=== PATIENT | male | born 1985 | race Caucasian/White ===

== ENCOUNTER 2017-09-30 00:35 | Inpatient (IN) | payer OTHER ==
[~2017-09-30] VITALS: Ht 193 cm; Wt 89.1 kg
[2017-09-30 01:05] LABS: PLATELET COUNT 238 x10^3mcL (130-400); RED CELL DISTRIBUTION WIDTH 13.2 % (11.5-14.5)
[2017-09-30 01:10] LABS: BASOPHIL % 3.1 % (0-2)
[2017-09-30 01:21] LABS: CALCIUM 9.1 mg/dL (8.5-10.1); CARBON DIOXIDE 28.1 mmol/L (21-32); CHLORIDE SERUM 102 mmol/L (98-107); CREATININE SERUM 1.1 mg/dL (0.7-1.3); GFR1 > 60 mL/min; GLUCOSE SERUM 132 mg/dL (74-106); POTASSIUM SERUM 3.8 mmol/L (3.5-5.1); SODIUM SERUM 141 mmol/L (136-145)
[2017-09-30 01:25] LABS: ALBUMIN 4.5 g/dL (3.4-5.0); ALKALINE PHOSPHATASE 67 U/L (46-116); ALT/SGPT 24 U/L (16-63); AMYLASE 62 U/L (25-115); AST/SGOT 14 U/L (15-37); BILIRUBIN TOTAL 0.48 mg/dL (0.20-1.00); LIPASE 178 IU/L (73-393)
[2017-09-30 04:04] VITALS: BP 116/59
[2017-09-30 04:24] LABS: microscopic required? NO
[2017-09-30 04:27] LABS: MAGNESIUM 2.1 mg/dL (1.8-2.4); PHOSPHOROUS 3.2 mg/dL (2.5-4.9)
[2017-09-30 04:28] LABS: CHOLESTEROL/HDL RATIO 2.1
[2017-09-30 04:30] LABS: FREE T4 1.07 ng/dL (0.76-1.46); FREE THYROXINE INDEX 3.2 ug/dL (1.4-4.5); T3 TOTAL 1.05 ng/mL; T4(THYROXINE) 8.7 ug/dL (4.7-13.3)
[2017-09-30 04:40] LABS: UA SPECIFIC GRAVITY >=1.030 (1.005-1.035); urine erythrocyte NEGATIVE (NEGATIVE)
[2017-09-30 04:49] LABS: AMPHETAMINE QUAL UR NONE DETECTED (NEG <=1000)
[2017-09-30 07:32] LABS: BASOPHIL % 0.3 % (0-2); PLATELET COUNT 213 x10^3mcL (130-400)
[2017-09-30 07:37] LABS: CALCIUM 8.2 mg/dL (8.5-10.1); CARBON DIOXIDE 27.6 mmol/L (21-32); CHLORIDE SERUM 107 mmol/L (98-107); GFR1 > 60 mL/min; GLUCOSE SERUM 121 mg/dL (74-106); POTASSIUM SERUM 4.1 mmol/L (3.5-5.1); SODIUM SERUM 142 mmol/L (136-145)
[2017-09-30 08:57] VITALS: BP 104/54
[2017-09-30 18:21] VITALS: BP 109/65
[2017-09-30 21:32] VITALS: BP 106/63
[2017-10-01 06:04] VITALS: BP 121/73
[2017-10-01 07:22] LABS: BASOPHIL % 0.3 % (0-2); PLATELET COUNT 200 x10^3mcL (130-400); RED CELL DISTRIBUTION WIDTH 13.2 % (11.5-14.5)
[2017-10-01 07:42] LABS: CALCIUM 8.5 mg/dL (8.5-10.1); CARBON DIOXIDE 27.2 mmol/L (21-32); CHLORIDE SERUM 105 mmol/L (98-107); GFR1 > 60 mL/min; GLUCOSE SERUM 113 mg/dL (74-106); MAGNESIUM 1.8 mg/dL (1.8-2.4); PHOSPHOROUS 2.9 mg/dL (2.5-4.9); POTASSIUM SERUM 4.3 mmol/L (3.5-5.1); SODIUM SERUM 140 mmol/L (136-145)
[2017-10-01 09:35] VITALS: BP 112/67
[2017-10-01 12:44] VITALS: BP 119/72; Ht 193 cm; Wt 89.1 kg
[2017-10-01 17:35] VITALS: BP 120/65
[2017-10-01 21:41] VITALS: BP 130/72
[2017-10-02 05:22] VITALS: BP 108/60
[2017-10-02 07:25] LABS: BASOPHIL % 0.3 % (0-2); PLATELET COUNT 187 x10^3mcL (130-400); RED CELL DISTRIBUTION WIDTH 13.4 % (11.5-14.5)
[2017-10-02 07:31] LABS: CALCIUM 8.9 mg/dL (8.5-10.1); CARBON DIOXIDE 26.4 mmol/L (21-32); CHLORIDE SERUM 105 mmol/L (98-107); GFR1 > 60 mL/min; GLUCOSE SERUM 110 mg/dL (74-106); MAGNESIUM 1.8 mg/dL (1.8-2.4); PHOSPHOROUS 3.9 mg/dL (2.5-4.9); POTASSIUM SERUM 3.9 mmol/L (3.5-5.1); SODIUM SERUM 141 mmol/L (136-145)
[2017-10-02 09:08] VITALS: BP 120/61
[2017-10-02 22:12] VITALS: BP 110/55
[2017-10-03 06:08] VITALS: BP 113/62
[2017-10-03 09:18] VITALS: BP 116/62
[2017-10-03] MEDS ORDERED: NOR10T PO (11:43)
[2017-10-03] MEDS ORDERED: COLACE100 MG PO (11:44)
[2017-10-03] MEDS ORDERED: ZITHROMAX1 GM/Packe PO (11:44)
[2017-10-03] MEDS ORDERED: BD LACTINEX1.4 MG PO (11:45)
[2017-10-03] MEDS ORDERED: MOT800 PO (11:48)
[2017-10-03 13:08] VITALS: BP 116/62
== END 2017-10-03 15:04 | disposition home or self-care (01) | DRG 343 ==
LOC: ED 00:35 → MU 02:51 → DU 02:51 → MU 03:26 → DU 03:33 → MU 09:13
PROVIDERS: Emergency Medicine; Family Medicine; Surgery
PROC: 0DTJ4ZZ Resection of Appendix, Percutaneous Endoscopic Approach (ICD-10-PCS; principal; 2017-10-01 15:30)
DX: K35.80 Unspecified acute appendicitis (principal); K59.00 Constipation, unspecified; R73.03 Prediabetes; J06.9 Acute upper respiratory infection, unspecified; Z68.25 Body mass index [BMI] 25.0-25.9, adult
CPT/HCPCS: 83880; 84439; 94150; J0330; J0690; J1170; J1885; J1956; J2405; J2704; J3010; J3490; J7030; J7120; Q0092; Q9967

== ENCOUNTER 2017-10-05 22:48 | Emergency (ER) | payer OTHER ==
[~2017-10-05 22:48] MED LIST: BD LACTINEX1.4 MG PO; COLACE100 MG PO; MOT800 PO; NOR10T PO; ZITHROMAX1 GM/Packe PO
[2017-10-05 23:54] LABS: BASOPHIL % 0.3 % (0-2); PLATELET COUNT 222 x10^3mcL (130-400); RED CELL DISTRIBUTION WIDTH 13.2 % (11.5-14.5)
[2017-10-06 00:03] LABS: CALCIUM 8.8 mg/dL (8.5-10.1); CARBON DIOXIDE 28.9 mmol/L (21-32); CHLORIDE SERUM 104 mmol/L (98-107); CREATININE SERUM 1.1 mg/dL (0.7-1.3); GFR1 > 60 mL/min; GLUCOSE SERUM 105 mg/dL (74-106); POTASSIUM SERUM 4.3 mmol/L (3.5-5.1); SODIUM SERUM 142 mmol/L (136-145)
[2017-10-06 00:05] LABS: ALBUMIN 3.8 g/dL (3.4-5.0); ALKALINE PHOSPHATASE 60 U/L (46-116); ALT/SGPT 36 U/L (16-63); AST/SGOT 22 U/L (15-37); BILIRUBIN TOTAL 0.2 mg/dL (0.20-1.00); TOTAL PROTEIN, SERUM 7.4 g/dL (6.4-8.2)
[2017-10-06 02:14] VITALS: BP 121/73
== END 2017-10-06 02:14 | disposition home or self-care (01) ==
LOC: ED 22:48
PROVIDERS: Emergency Medicine
DX: K91.89 Other postprocedural complications and disorders of digestive system (principal); J06.9 Acute upper respiratory infection, unspecified; K12.2 Cellulitis and abscess of mouth; Z90.49 Acquired absence of other specified parts of digestive tract; Z88.1 Allergy status to other antibiotic agents; Y83.8 Other surgical procedures as the cause of abnormal reaction of the patient, or of later complication, without mention of misadventure at the time of the procedure; Y92.89 Other specified places as the place of occurrence of the external cause
CPT/HCPCS: J7030; Q9967